=== PATIENT | male | born 2000 | race Caucasian/White ===

== ENCOUNTER 2024-03-06 13:29 | Emergency (ER) | payer MEDICAID ==
[~2024-03-06] VITALS: Ht 182.9 cm; Wt 72.6 kg
[2024-03-06 14:14] VITALS: BP 132/81; PULSE 125; RESP 18; TEMP 98.1; O2SAT 96
[2024-03-06] MEDS ORDERED: PRED20TA5 PO (14:43)
[2024-03-06] MEDS ORDERED: DIPH25CA94 PO (14:43)
[2024-03-06] MEDS: DEXAMETHASONE 10 MG/ML VIAL IM ONE (15:32)
[2024-03-06] MEDS: diphenhydrAMINE 50 MG/ML VIAL IM ONE (15:34)
== END 2024-03-06 15:58 | disposition home or self-care (01) ==
LOC: MED 13:29
DX: R21 Rash and other nonspecific skin eruption (principal); L29.9 Pruritus, unspecified; Z79.899 Other long term (current) drug therapy
CPT/HCPCS: 96372; 99284; J1100; J1200